=== PATIENT | male | born 1960 | race Hispanic/Latino ===

== ENCOUNTER 2018-01-03 12:20 | Emergency (ER) | payer MEDICARE ==
[2018-01-03 12:21] VITALS: BMI 33.9
[2018-01-03] MEDS ORDERED: Sodium Chloride 0.9% 500 ML IV STA (12:52)
--- NOTE | 2018-01-03 13:00 | ED PDOC ---
Arrival/HPI - General Chief Complaint: Abdominal Pain Time Seen by Provider: 01/03/18 12:35 Historian: Patient - History of Present Illness Narrative History of Present Illness (Text): 01/03/18 12:50 A 57 year old male, whose past medical history includes hypertension, diabetes, and depression, presents to the emergency department complaining of intermittent diffuse abdominal pain for a few months. Patient is unable to characterize pain and has not seen his PMD. Patient denies any fever, nausea, vomiting, or any other complaints. Limited HPI due to patient being a poor historian. Time/Duration: Other (few months) Symptom Onset: Sudden Symptom Course: Intermittent Past Medical History - Provider Review Nursing Documentation Reviewed: Yes - Past History Past History: No Previous - Infectious Disease Hx of Infectious Diseases: None - Tetanus Immunization Tetanus Immunization: Unknown, Up to Date - Cardiac Hx Cardiac Disorders: Yes Hx Hypertension: Yes - Pulmonary Hx Respiratory Disorders: Yes Hx Bronchitis: Yes Hx Chronic Obstructive Pulmonary Disease (COPD): Yes - Neurological Hx Neurological Disorder: Yes Hx Transient Ischemic Attacks (TIA): Yes - HEENT Hx HEENT Disorder: Yes Other/Comment: wear glasses - Renal Hx Renal Disorder: No - Endocrine/Metabolic Hx Endocrine Disorders: Yes Hx Diabetes Mellitus Type 1: Yes - Hematological/Oncological Hx Blood Disorders: No - Integumentary Hx Dermatological Disorder: No - Musculoskeletal/Rheumatological Hx Musculoskeletal Disorders: Yes Hx Back Pain: Yes - Gastrointestinal Hx Gastrointestinal Disorders: Yes Hx Gastroesophageal Reflux: Yes - Genitourinary/Gynecological Hx Genitourinary Disorders: No - Psychiatric Hx Psychophysiologic Disorder: Yes Hx Bipolar Disorder: Yes Hx Substance Use: No - Past Surgical History Past Surgical History: No Previous - Surgical History Hx Cataract Extraction: Yes Hx Orthopedic Surgery: Yes (Left knee) - Anesthesia Hx Anesthesia: Yes Hx Anesthesia Reactions: No Hx Malignant Hyperthermia: No - Suicidal Assessment Feels Threatened In Home Enviroment: No Family/Social History - Physician Review Nursing Documentation Reviewed: Yes Family/Social History: No Known Family HX Smoking Status: Never Smoked Hx Alcohol Use: No (QUIT OVER 11 YRS ) Hx Substance Use: No Hx Substance Use Treatment: Yes Allergies/Home Meds Allergies/Adverse Reactions: Allergies No Known Allergies Allergy (Verified 01/03/18 12:35) Home Medications: Home Meds Medication Instructions Recorded Confirmed Esomeprazole Magnesium [Nexium] 40 mg PO QAM 03/16/12 01/03/18 Lurasidone HCl [Latuda] 60 mg PO QAM 03/04/14 01/03/18 Acetaminophen/Oxycodone Hydr 10 mg PO Q8H 04/02/15 01/03/18 [Percocet 10/325 mg Tab] Escitalopram [Lexapro] 20 mg PO QAM 04/02/15 01/03/18 Insulin Human NPH [Humulin N] 15 units SC ACHS 04/02/15 01/03/18 Lisinopril [Zestril] 10 mg PO QAM 04/02/15 01/03/18 clonazePAM [Klonopin] 2 mg PO BID 04/02/15 01/03/18 Divalproex [Depakote DR(*BID*)] 500 mg PO BID 07/04/15 01/03/18 Ezetimibe [Zetia] 10 mg PO DAILY 01/03/18 01/03/18 Lantus 1 unit SC BID 01/03/18 01/03/18 Lasix 40 mg PO DAILY 01/03/18 01/03/18 Linaclotide [Linzess] 1 tab PO DAILY 01/03/18 01/03/18 QUEtiapine [Seroquel XR] 200 mg PO HS 01/03/18 01/03/18 Review of Systems - Physician Review All systems were reviewed & negative as marked: Yes - Review of Systems Constitutional: absent: Fevers Gastrointestinal: Abdominal Pain (intermittent pain). absent: Nausea, Vomiting Physical Exam Vital Signs Reviewed: Yes Vital Signs Temp Pulse Resp BP Pulse Ox 01/03/18 15:20 98.2 F 72 18 145/72 97 01/03/18 12:30 98.1 F 83 16 143/81 96 Temperature: Afebrile Blood Pressure: Normal Pulse: Regular Respiratory Rate: Normal Appearance: Positive for: Well-Appearing, Non-Toxic, Comfortable Pain Distress: None Mental Status: Positive for: Alert and Oriented X 3 - Systems Exam Head: Present: Atraumatic, Normocephalic Neck: Present: Normal Range of Motion Respiratory/Chest: Present: Clear to Auscultation, Good Air Exchange. No: Respiratory Distress, Accessory Muscle Use Cardiovascular: Present: Regular Rate and Rhythm, Normal S1, S2. No: Murmurs Abdomen: Present: Tenderness (mild non-focal tenderness). No: Rebound, Guarding Back: Present: Normal Inspection Upper Extremity: Present: Normal Inspection. No: Cyanosis, Edema Lower Extremity: Present: Normal Inspection. No: Edema Neurological: Present: GCS=15, CN II-XII Intact, Speech Normal Skin: Present: Warm, Dry, Normal Color. No: Rashes Psychiatric: Present: Alert, Oriented x 3, Normal Insight, Normal Concentration Medical Decision Making ED Course and Treatment: 01/03/18 12:53 Impression: 57 year old male with abdominal pain. Physical exam shows mild, non -focal abdominal tenderness with no guarding/rebound. Plan: -- Abd/Pelvis CT -- Labs -- Urinalysis -- Toradol -- IV Fluids -- Reassess and disposition Progress Notes: 01/03/18 12:55 Bedside Ultrasound shows no evidence of cholecystitis. 01/03/2018 15:00 Abd/Pelvis CT IMPRESSION: No acute intra-abdominal findings. Dictator: Charles Licea MD 01/03/18 22:59 chronic abd abd, consider ibs, gastritis, gas/constipation. labs imaging neg. updated pmd dr valle agrees with outpt management - Lab Interpretations Lab Results: 01/03/18 13:20 01/03/18 13:20 Lab Results 01/03/18 13:20: Valproic Acid 66 01/03/18 13:20: Sodium 132, Potassium 4.7, Chloride 93 L, Carbon Dioxide 27, Anion Gap 17, BUN 13, Creatinine 0.6 L, Est GFR ( Amer) > 60, Est GFR ( Non-Af Amer) > 60, Random Glucose 250 H, Calcium 8.9, Magnesium 1.6 L, Total Bilirubin 0.4, AST 41, ALT 61 H, Alkaline Phosphatase 103, Total Protein 6.8, Albumin 4.1, Globulin 2.7, Albumin/Globulin Ratio 1.5, Lipase 64 01/03/18 13:20: Urine Color Yellow, Urine Appearance Clear, Urine pH 6.0, Ur Specific [place] 1.020, Urine Protein Negative, Urine Glucose (UA) 250 H, Urine Ketones Trace H, Urine Blood Negative, Urine Nitrate Negative, Urine Bilirubin Negative, Urine Urobilinogen 0.2, Ur Leukocyte Esterase Negative 01/03/18 13:20: PT 11.2, INR 0.98, APTT 27.4 01/03/18 13:20: WBC 8.0, RBC 4.41, Hgb 13.1 L, Hct 37.0 L, MCV 83.9, MCH 29.7, MCHC 35.4, RDW 13.1, Plt Count 227, MPV 8.9, Gran % 52.8, Lymph % (Auto) 34.5, Wilkin % (Auto) 9.7 H, Eos % (Auto) 2.5, Baso % (Auto) 0.5, Gran # 4.20, Lymph # ( Auto) 2.8, Wilkin # (Auto) 0.8 H, Eos # (Auto) 0.2, Baso # (Auto) 0.04 - RAD Interpretation Radiology Orders: 01/03/18 13:41 ABD & PELVIS IV CONTRAST ONLY [CT] Stat - Medication Orders Current Medication Orders: Discontinued Medications Sodium Chloride (Sodium Chloride 0.9%) 500 mls @ 1,000 mls/hr IV .Q30M STA Stop: 01/03/18 13:21 Last Admin: 01/03/18 13:18 Dose: 1,000 mls/hr eMAR Start Stop Document 01/03/18 13:18 HI (Rec: 01/03/18 13:18 HI [id number]) Intravenous Solution Start Date 01/03/18 Start Time 13:18 Ketorolac Tromethamine (Toradol) 30 mg IVP STAT STA Stop: 01/03/18 12:53 Last Admin: 01/03/18 13:18 Dose: 30 mg MAR Pain Assessment Document 01/03/18 13:18 HI (Rec: 01/03/18 13:18 HI [id number]) Pain Reassessment Is this a pain reassessment? No Sleep Is patient sleeping during reassessment? No Presence of Pain Presence of Pain Yes Location Pain Location Body Site Abdomen IVP Administration Document 01/03/18 13:18 HI (Rec: 01/03/18 13:18 HI [id number]) Charges for Administration # of IVP Administrations 1 - Scribe Statement The provider has reviewed the documentation as recorded by the Rehanibvee Barron Provider Scribe Attestation: All medical record entries made by the Scribe were at my direction and personally dictated by me. I have reviewed the chart and agree that the record accurately reflects my personal performance of the history, physical exam, medical decision making, and the department course for this patient. I have also personally directed, reviewed, and agree with the discharge instructions and disposition. Disposition/Present on Arrival - Present on Arrival Any Indicators Present on Arrival: No History of DVT/PE: No History of Uncontrolled Diabetes: No Urinary Catheter: No History of Decub. Ulcer: No History Surgical Site Infection Following: None - Disposition Have Diagnosis and Disposition been Completed?: Yes Diagnosis: Abdominal pain Disposition: HOME/ ROUTINE Disposition Time: 03:00 Condition: STABLE Discharge Instructions (ExitCare): Acute Abdomen (Belly Pain) Additional Instructions: return to emergency room with worsening symptoms or concerns. please follow up with your doctor. Prescriptions: Famotidine [Pepcid] 20 mg PO DAILY #20 tab Referrals: Roberto Carlos Martinez MD [Medical Doctor] - Follow up with primary Forms: INBEP (Amharic)
[2018-01-03 13:27] LABS: BASO # 0.04 K/mm3 (0.0-2.0); BASO % 0.5 % (0.0-3.0); EOS # 0.2 (0.0-0.7); EOS % 2.5 % (1.5-5.0); GRAN # 4.2 (1.4-6.5); GRAN % 52.8 % (50.0-68.0); HEMOGLOBIN 13.1 g/dL (14.0-18.0); LYMPH # 2.8 (1.2-3.4); LYMPH % 34.5 % (22.0-35.0); MEAN CELL VOLUME 83.9 fl (80.0-105.0); MEAN CORPUSCULAR HEMOGLOBIN 29.7 pg (25.0-35.0); MEAN CORPUSCULAR HGB CONC 35.4 g/dl (31.0-37.0); MEAN PLATELET VOLUME 8.9 fl (7.0-11.0); MONO # 0.8 (0.1-0.6); MONO % 9.7 % (1.0-6.0); RBC 4.41 10^6/uL (3.5-6.1); RED CELL DISTRIBUTION WIDTH 13.1 % (11.5-14.5); URINE BILIRUBIN NEGATIVE (NEGATIVE); URINE BLOOD NEGATIVE (NEGATIVE); URINE GLUCOSE (UA) 250 mg/dL (NEGATIVE); URINE LEUKOCYTE ESTERASE NEGATIVE Leu/uL (NEGATIVE); URINE PROTEIN NEGATIVE mg/dL (<30 mg/dL); URINE UROBILINOGEN 0.2 E.U./dL (<1 E.U./dL)
[2018-01-03 13:30] LABS: URINE APPEARANCE CLEAR (CLEAR); URINE COLOR YELLOW (YELLOW)
[2018-01-03 13:36] LABS: ALB/GLOB RATIO 1.5 (1.1-1.8); ALBUMIN 4.1 g/dL (3.0-4.8); ALT/SGPT 61 U/L (7-56); AST/SGOT 41 U/L (17-59); BLOOD UREA NITROGEN 13 mg/dL (7-21); CALCIUM 8.9 mg/dL (8.4-10.5); GFR AFRICAN-AMERICAN > 60; GFR NON-AFRICAN AMERICAN > 60; LIPASE 64 U/L (23-300)
[2018-01-03 13:39] LABS: INR 0.98 (0.93-1.08); PARTIAL THROMBOPLASTIN TIME 27.4 Seconds (25.1-36.5); PROTHROMBIN TIME 11.2 SECONDS (9.4-12.5)
--- NOTE | 2018-01-03 15:02 | CT ---
PROCEDURE: CT Abdomen and Pelvis with contrast HISTORY: generalized abd pain COMPARISON: None. TECHNIQUE: Contrast dose: 150 cc of Omni 350 Radiation dose: Total exam DLP = 1669 mGy-cm. This CT exam was performed using one or more of the following dose reduction techniques: Automated exposure control, adjustment of the mA and/or kV according to patient size, and/or use of iterative reconstruction technique. FINDINGS: LOWER THORAX: Unremarkable. LIVER: There is severe fatty infiltration of the liver GALLBLADDER AND BILE DUCTS: Unremarkable. PANCREAS: Unremarkable. No gross lesion or ductal dilatation. SPLEEN: Unremarkable. ADRENALS: Unremarkable. No mass. KIDNEYS AND URETERS: Unremarkable. No hydronephrosis. No solid mass. VASCULATURE: Unremarkable. No aortic aneurysm. BOWEL: Unremarkable. No obstruction. No gross mural thickening. APPENDIX: Normal appendix. PERITONEUM: Unremarkable. No free fluid. No free air. LYMPH NODES: Unremarkable. No enlarged lymph nodes. BLADDER: Unremarkable. REPRODUCTIVE: Unremarkable. BONES: No acute fracture. OTHER FINDINGS: None. IMPRESSION: No acute intra-abdominal findings
[2018-01-03 15:41] VITALS: BP 145/72; PULSE 72; RESP 18; TEMP 98.2; O2SAT 97
== END 2018-01-03 15:20 | disposition home or self-care (01) ==
LOC: ED 12:20
DX: R10.9 Unspecified abdominal pain (principal); E11.9 Type 2 diabetes mellitus without complications; Z86.73 Personal history of transient ischemic attack (TIA), and cerebral infarction without residual deficits
CPT/HCPCS: 74177; 80053; 80164; 81003; 83690; 83735; 85025; 85610; 85730; 96374; 99284; J1885; J7040; Q9967

== ENCOUNTER 2018-03-14 07:44 | Day surgery (SDC) | payer MEDICARE ==
[2018-03-14] MEDS ORDERED: Midazolam 2 MG/2 ML VIAL ONE (12:10)
[2018-03-14] MEDS ORDERED: Propofol 10 mg/ml Inj (20 ML) ONE ×2 (12:10→12:39)
[2018-03-14] MEDS ORDERED: Sodium Chloride 0.9% 1,000 ML IV SCH (13:00)
[2018-03-14 14:24] VITALS: BP 146/84; PULSE 66; RESP 16; TEMP 98.2; O2SAT 95
== END 2018-03-14 14:16 | disposition home or self-care (01) ==
LOC: ENDO 07:44
PROVIDERS: ATTEND Internal Medicine Gastroenterology
DX: K21.9 Gastro-esophageal reflux disease without esophagitis (principal); K29.50 Unspecified chronic gastritis without bleeding; K59.00 Constipation, unspecified; K64.8 Other hemorrhoids; E11.43 Type 2 diabetes mellitus with diabetic autonomic (poly)neuropathy; K31.84 Gastroparesis; J44.9 Chronic obstructive pulmonary disease, unspecified; I10 Essential (primary) hypertension; K22.0 Achalasia of cardia; R10.9 Unspecified abdominal pain
CPT/HCPCS: 43239; 45378; 82948; 88305; 88312; 88342; J2001; J2250; J2704; J3010; J7030; J7040

== ENCOUNTER 2018-05-22 08:43 | Day surgery (SDC) | payer MEDICARE ==
[2018-05-17 11:07] VITALS: BMI 36.6
[2018-05-22] MEDS ORDERED: Propofol 10 mg/ml Inj (20 ML) ONE (12:12)
[2018-05-22] MEDS ORDERED: Etomidate 20 mg/10ml Inj IV ONE (12:12)
[2018-05-22] MEDS ORDERED: Sodium Chloride 0.9% 1,000 ML IV SCH (13:00)
[2018-05-22 13:36] VITALS: PULSE 70
[2018-05-22 14:04] VITALS: BP 155/87; RESP 14; TEMP 98; O2SAT 96
== END 2018-05-22 14:45 | disposition home or self-care (01) ==
LOC: ENDO 08:43
PROVIDERS: ATTEND Internal Medicine Gastroenterology
DX: D12.0 Benign neoplasm of cecum (principal); D12.2 Benign neoplasm of ascending colon; K64.8 Other hemorrhoids; Q43.8 Other specified congenital malformations of intestine; J44.9 Chronic obstructive pulmonary disease, unspecified; K59.00 Constipation, unspecified; K21.9 Gastro-esophageal reflux disease without esophagitis; I10 Essential (primary) hypertension; E10.9 Type 1 diabetes mellitus without complications; K22.70 Barrett's esophagus without dysplasia; M54.5 Low back pain
CPT/HCPCS: 45385; 82948; 88305; J1885 ×2; J2001; J2704; J3010; J7030

== ENCOUNTER 2018-06-28 13:56 | Observation (INO) | payer MEDICARE, OTHER ==
--- NOTE | 2018-06-28 15:03 | ED PDOC ---
Arrival/HPI - General Chief Complaint: Eye Problem Time Seen by Provider: 06/28/18 14:15 - History of Present Illness Narrative History of Present Illness (Text): 06/28/18 14:54 A 58 year old male, whose past medical history includes , presents to the [facility] department complaining of blurred vision starting yesterday. He reports that the vision in both eyes is blurry. Patient reports he recently had eye glasses prescription changed. He picked up his new glasses today but it has not improved his vision, Patient denies any chest pain, shortness of breath, back pain, neck pain, headache, any trauma, or any other complaints at this time. PMD: Dr. Miesha Bear 06/28/18 18:04 Past Medical History - Provider Review Nursing Documentation Reviewed: Yes - Past History Past History: No Previous - Infectious Disease Hx of Infectious Diseases: None - Tetanus Immunization Tetanus Immunization: Unknown, Up to Date - Cardiac Hx Pacemaker: No - Pulmonary Hx Respiratory Disorders: Yes Hx Bronchitis: Yes Hx Chronic Obstructive Pulmonary Disease (COPD): Yes - Neurological Hx Paralysis: No - HEENT Hx HEENT Disorder: Yes Other/Comment: wear glasses - Renal Hx Renal Disorder: No - Endocrine/Metabolic Hx Endocrine Disorders: Yes Hx Diabetes Mellitus Type 1: Yes - Hematological/Oncological Hx Blood Transfusions: No Hx Blood Transfusion Reaction: No - Integumentary Hx Dermatological Disorder: No - Musculoskeletal/Rheumatological Hx Musculoskeletal Disorders: Yes - Gastrointestinal Hx Gastrointestinal Disorders: Yes Hx Gastroesophageal Reflux: Yes - Genitourinary/Gynecological Hx Genitourinary Disorders: No - Psychiatric Hx Emotional Abuse: No Hx Physical Abuse: No Hx Substance Use: No - Past Surgical History Past Surgical History: No Previous - Surgical History Hx Cataract Extraction: Yes Hx Orthopedic Surgery: Yes (Left knee) - Anesthesia Hx Anesthesia Reactions: No Hx Malignant Hyperthermia: No - Suicidal Assessment Feels Threatened In Home Enviroment: No Family/Social History - Physician Review Nursing Documentation Reviewed: Yes Family/Social History: No Known Family HX Smoking Status: Never Smoked Hx Alcohol Use: No (QUIT OVER 11 YRS ) Hx Substance Use: No Hx Substance Use Treatment: Yes Allergies/Home Meds Allergies/Adverse Reactions: Allergies No Known Allergies Allergy (Verified 06/28/18 14:17) Home Medications: Home Meds Medication Instructions Recorded Confirmed Esomeprazole Magnesium [Nexium] 40 mg PO QAM 03/16/12 06/28/18 Lurasidone HCl [Latuda] 80 mg PO QAM 03/04/14 06/28/18 RX: Escitalopram [Lexapro] 20 mg PO QAM 04/02/15 06/28/18 RX: Insulin Human NPH [Humulin N] 25 units SC ACHS 04/02/15 06/28/18 RX: Lisinopril [Zestril] 10 mg PO QAM 04/02/15 06/28/18 RX: clonazePAM [Klonopin] 2 mg PO AMHS 04/02/15 06/28/18 Divalproex [Depakote DR(*BID*)] 1,000 mg PO HS 07/04/15 06/28/18 Linaclotide [Linzess] 290 mcg PO DAILY 01/03/18 06/28/18 RX: QUEtiapine [Seroquel XR] 300 mg PO HS 01/03/18 06/28/18 Clonazepam [Klonopin] 1 mg PO DAILY 02/27/18 06/28/18 Furosemide [Lasix] 60 mg PO DAILY 05/17/18 06/28/18 Insulin Glargine, Recombina 60 unit SC BID 05/17/18 06/28/18 [Lantus] Aspirin [Ecotrin] 325 mg PO DAILY 05/22/18 06/28/18 Atorvastatin [Lipitor] 20 mg PO DAILY 05/22/18 06/28/18 Lurasidone HCl [Latuda] 80 mg PO DAILY 06/28/18 06/28/18 RX: Carvedilol [Coreg] 3.125 mg PO HS 06/28/18 06/28/18 Review of Systems - Physician Review All systems were reviewed & negative as marked: Yes - Review of Systems Constitutional: absent: Other (no trauma) Eyes: Vision Changes (blurry vision to both eyes) ENT: absent: Hearing Changes Respiratory: absent: SOB Cardiovascular: absent: Chest Pain Gastrointestinal: absent: Abdominal Pain, Constipation, Diarrhea, Nausea, Vomiting Genitourinary Male: absent: Dysuria Neurological: absent: Headache Endocrine: absent: Diaphoresis Psychiatric: absent: Anxiety, Depression Physical Exam Vital Signs Reviewed: Yes Vital Signs Temp Pulse Resp BP Pulse Ox 06/28/18 14:15 98.3 F 88 18 165/84 H 96 Temperature: Afebrile Blood Pressure: Hypertensive Pulse: Regular Respiratory Rate: Normal Appearance: Positive for: Well-Appearing, Non-Toxic, Comfortable Pain Distress: None Mental Status: Positive for: Alert and Oriented X 3 - Systems Exam Head: Present: Atraumatic, Normocephalic Pupils: Present: PERRL Extroacular Muscles: Present: EOMI, Other (eyesight: both:20/50, left 20/50; right 20/40) Conjunctiva: Present: Normal Mouth: Present: Moist Mucous Membranes Neck: Present: Normal Range of Motion Respiratory/Chest: Present: Clear to Auscultation, Good Air Exchange. No: Respiratory Distress, Accessory Muscle Use Cardiovascular: Present: Regular Rate and Rhythm, Normal S1, S2. No: Murmurs Abdomen: No: Tenderness, Distention, Peritoneal Signs Back: Present: Normal Inspection Upper Extremity: Present: Normal Inspection. No: Cyanosis, Edema Lower Extremity: Present: Normal Inspection. No: Edema Neurological: Present: GCS=15, CN II-XII Intact, Speech Normal, Gait Normal Skin: Present: Warm, Dry, Normal Color. No: Rashes Psychiatric: Present: Alert, Oriented x 3, Normal Insight, Normal Concentration Medical Decision Making ED Course and Treatment: 06/28/18 14:58 Impression: 58 year old male with blurry vision to both eyes. NIHSS:0. Plan: -- EKG -- Head CT -- Labs -- Reassess and disposition Progress Notes: 06/28/18 15:[address] Miesha Bear who is at bedside and requests tele observation and who requests neurology consult with Dr. Walter Webster 06/28/18 15:42 CT head negative 06/28/18 15:45 EKG shows NSA at 79bpm with 1st degree av block with pvcs, incomplete lbbb, nonspecific st changes. appears new? Patient has no chest pain. Trop x 1 negative. - RAD Interpretation Radiology Orders: 06/28/18 14:34 HEAD W/O CONTRAST [CT] Stat - Scribe Statement The provider has reviewed the documentation as recorded by the Rehanibe Kamini Barron Provider Scribe Attestation: All medical record entries made by the Scribe were at my direction and personally dictated by me. I have reviewed the chart and agree that the record accurately reflects my personal performance of the history, physical exam, medi brenda decision making, and the department course for this patient. I have also personally directed, reviewed, and agree with the discharge instructions and disposition. Disposition/Present on Arrival - Present on Arrival Any Indicators Present on Arrival: No History of DVT/PE: No History of Uncontrolled Diabetes: No Urinary Catheter: No History of Decub. Ulcer: No History Surgical Site Infection Following: None - Disposition Have Diagnosis and Disposition been Completed?: Yes Diagnosis: Vision changes Disposition: HOSPITALIZED Disposition Time: 15:42 Patient Plan: Observation Patient Problems: Current Active Problems Problem Status Onset Vision changes Acute Condition: FAIR
--- NOTE | 2018-06-28 15:38 | CT ---
Date of service: 06/28/2018 PROCEDURE: CT HEAD WITHOUT CONTRAST. HISTORY: blurry vision b/l COMPARISON: None available. TECHNIQUE: Axial computed tomography images were obtained through the head/brain without intravenous contrast. Radiation dose: Total exam DLP = 878.91 mGy-cm. This CT exam was performed using one or more of the following dose reduction techniques: Automated exposure control, adjustment of the mA and/or kV according to patient size, and/or use of iterative reconstruction technique. FINDINGS: HEMORRHAGE: No intracranial hemorrhage. BRAIN: No mass effect or edema. No atrophy or chronic microvascular ischemic changes. VENTRICLES: Unremarkable. No hydrocephalus. CALVARIUM: Unremarkable. PARANASAL SINUSES: Unremarkable as visualized. No significant inflammatory changes. MASTOID AIR CELLS: Unremarkable as visualized. No inflammatory changes. OTHER FINDINGS: None. IMPRESSION: Normal CT of the Head.
[2018-06-28 16:34] LABS: ALB/GLOB RATIO 1.3 (1.1-1.8); ALBUMIN 3.9 g/dL (3.0-4.8); ALT/SGPT 69 U/L (7-56); AST/SGOT 65 U/L (17-59); BLOOD UREA NITROGEN 9 mg/dL (7-21); GFR NON-AFRICAN AMERICAN > 60
[2018-06-28] MEDS ORDERED: Sodium Chloride 0.9% 1,000 ML IV STA (16:35)
[2018-06-28 16:46] LABS: TROPONIN I 0.01 ng/mL
[2018-06-28 17:14] LABS: BASO # 0.02 K/mm3 (0.0-2.0); BASO % 0.3 % (0.0-3.0); EOS # 0.2 (0.0-0.7); EOS % 1.9 % (1.5-5.0); GRAN # 3.94 (1.4-6.5); GRAN % 50.7 % (50.0-68.0); HEMOGLOBIN 13.1 g/dL (14.0-18.0); LYMPH # 2.8 (1.2-3.4); LYMPH % 36.2 % (22.0-35.0); MEAN CELL VOLUME 85.1 fl (80.0-105.0); MEAN CORPUSCULAR HGB CONC 35.3 g/dl (31.0-37.0); MONO # 0.9 (0.1-0.6); MONO % 10.9 % (1.0-6.0); RBC 4.36 10^6/uL (3.5-6.1); RED CELL DISTRIBUTION WIDTH 13.3 % (11.5-14.5); WHITE BLOOD COUNT 7.8 10^3/uL (4.5-11.0)
[2018-06-28 18:45] VITALS: O2SAT 96
--- NOTE | 2018-06-28 18:48 | CON ---
DATE: 06/28/2018 NEUROLOGY CONSULT CHIEF COMPLAINT: Blurry vision. CURRENT HISTORY OF PRESENT ILLNESS: A 58-year-old man with history of type 2 diabetes mellitus, COPD, schizophrenia, wears glasses, history of GERD, history of left knee orthopedic surgery, history of depression, and anxiety, on Seroquel, Klonopin, Latuda, Lexapro, Depakote, aspirin, and Lipitor for stroke prevention who presents with complaints of blurry vision on both eyes and he recently saw an orthotics assistant for glass and told that his vision was okay and that his did not change. He says he cannot see clearly with and without glasses. He was having blurry vision rather than double. No headaches. No focal changes. No focal sensitivity . No focal weakness of the extremities. He has some mild peripheral neuropathy on the neuro examination on the lower extremities. Otherwise, no falls. PAST MEDICAL HISTORY: As above. SOCIAL HISTORY: No illicit drug use, smoking or EtOH abuse. ALLERGIES: NO KNOWN DRUG ALLERGIES. MEDICATIONS: Reviewed by nurses' reconciliation sheet. REVIEW OF SYSTEMS: A 14-point review of systems is negative except as per HPI. FAMILY HISTORY: Noncontributory. LABORATORY DATA: Sodium is 127, potassium 4.3, chloride 93, carbon dioxide 28, BUN of 9, creatinine 0.7, and random glucose of 120. PHYSICAL EXAMINATION: GENERAL: The patient is sitting up in bed, in no acute distress. VITAL SIGNS: Temperature 98.3, pulse rate 79, blood pressure 150/76, respiratory rate 18, and oxygen saturation 97% by room air. HEENT: Atraumatic and normocephalic. PERRLA. Extraocular muscles are intact. NECK: Supple. No JVD. No adenopathy noted. LUNGS: Clear to auscultation. No adventitious sounds. HEART: S1 and S2. Normal rate and rhythm. No murmurs, rubs, or gallops. ABDOMEN: Soft, nontender, and nondistended. Bowel sounds are present. EXTREMITIES: No clubbing. No cyanosis. Peripheral pulses 2+ felt bilaterally. NEUROLOGIC: The patient is alert and oriented to person, place, month, and year. Speech is fluent without any errors. Cranial nerves II through XII intact. There is some mild blurry vision on visual acuity at both eyes. When covering each eye, the blurry vision does not improve. No double vision seen. MOTOR EXAMINATION: Moves all extremities equally. No pronator drift seen. SENSORY EXAMINATION: Decreased light touch and pinprick up to the calves bilaterally. Decreased vibration of the toes. DTRs are 2+ throughout and 1 at both knees and ankles. COORDINATION: [id number] intact. No dysmetria noted. Gait is deferred for now. IMPRESSION: Blurry vision could be secondary to diabetic neuropathy versus central versus underlying hyponatremia with a low sodium of 127. RECOMMENDATIONS: At this time, I recommend: 1. Corrected underlying metabolic in terms of of hyponatremia. 2. MRI of the brain to assess for any central abnormalities causing blurry vision. 3. Keep blood sugars between 140-180, get hemoglobin A1c and diabetic diet. Thank you for this consult. Walter Webster MD
--- NOTE | 2018-06-28 20:09 | HP ---
DATE OF EXAM: 06/28/2018 HISTORY OF PRESENT ILLNESS: This 58-year-old male who presents to the emergency room with complaints of blurred vision. The patient states that he has been having blurred vision for the last 2 days and also states that he recently changed his eye glasses where the prescriptions remain the same according to the patient. The patient denies any headaches. He denies any nausea or vomiting. ALLERGIES: NO KNOWN ALLERGIES. MEDICATIONS: His current home medication list consists of Latuda 80 mg daily, Lantus insulin 60 units subcutaneously b.i.d., Lipitor 20 mg daily, Ecotrin 325 daily, Klonopin 2 mg a.m. and at bedtime, Seroquel XR 300 mg at bedtime, Zestril 10 mg daily, Linzess 290 mcg daily, Humulin N 25 units subcutaneously a.c. and at bedtime, Lasix 60 mg daily, Nexium 40 mg daily, Lexapro 20 mg daily, Depakote ER 1000 mg p.o. at bedtime, Klonopin 1 mg p.o. daily and Coreg 3.125 mg at bedtime. PAST MEDICAL HISTORY: He has a history of gastroesophageal reflux disease, gastroparesis, fatty liver disease, bipolar disorder, depression, hypertension, COPD, insulin-dependent diabetes, degenerative arthritis of the spine, hyperlipidemia. SOCIAL HISTORY: He is a nonsmoker, nondrinker, non drug user. REVIEW OF SYSTEMS: A 10 systems are reviewed. Pertinent findings is that physical exam. PHYSICAL EXAMINATION: GENERAL: The patient is currently lying on a stretcher in the emergency room. VITAL SIGNS: His temperature is 98.3. His pulse is 88. His blood pressure reported 165/84, respiratory rate is 18, his oxygen sat is 96% on room air. NECK: Supple. No JVD. CHEST: Symmetric. HEART: S1, S2 rhythm. LUNGS: Show diminished breath sounds at the bases. ABDOMEN: Obese, soft with positive bowel sounds. EXTREMITIES: Show evidence of edema. LABORATORY DATA: Shows a WBC of 7.8, RBC 4.36, hemoglobin 13.1, hematocrit 37.1, platelet count is 205. Chemistry shows a sodium of 127, potassium 4.3, chloride 93, CO2 of 28. BUN is 90, creatinine is 0.7. Random blood sugar is 120. His AST is 65. His ALT is 69. Alkaline phosphatase is 112. Troponin is 0.01, albumin is 3.9. A CAT scan of his head reported by radiologist is showing normal CT of the head. IMPRESSION: 1. The patient changes. 2. Hyponatremia. 3. Insulin dependent diabetes. 4. Fatty liver disease. 5. Gastroesophageal reflux disease. 6. Gastroparesis. 7. Hypertension. 8. Chronic obstructive pulmonary disease. 9. Bipolar disorder. PLAN: The patient will be admitted to monitored bed with a Neurology consult. We will also get a Nephrology consult and we will get a followup with psychiatry to review his current medications. Further treatment plan is pending further diagnostic studies. Miesha Bear MD
--- NOTE | 2018-06-28 20:23 | CARD ---
APPROVED REPORT Date of service: 06/28/2018 EKG Measurement Heart [id number] <Conclusion> Sinus rhythm with 1st degree AV block with occasional premature ventricular complexes Incomplete left bundle branch block Nonspecific ST and T wave abnormality Prolonged QT Abnormal ECG
[2018-06-28] MEDS ORDERED: QUEtiapine 300 mg XR Tab PO SCH (22:00)
[2018-06-28] MEDS ORDERED: Divalproex 500 mg ER (ONCE DAILY formulation) PO SCH (22:00)
[2018-06-28] MEDS: Oxycodone/Acetaminophen 5/325 mg Tab PO SCH (23:01)
[2018-06-28 23:08] VITALS: BMI 38.3
[2018-06-28] MEDS ORDERED: Pneumococcal 23-Valent Vaccine IM ONE (23:08)
[2018-06-28] MEDS ORDERED: Influenza Vaccine 60 mcg/0.5 mL SYR (4YR UP) IM ONE (23:08)
[2018-06-29] MEDS: Oxycodone/Acetaminophen 5/325 mg Tab PO SCH ×3 (06:58→15:03)
[2018-06-29] MEDS ORDERED: INSULIN GLARGINE SC SCH ×2 (07:00→07:42)
[2018-06-29 07:04] LABS: ALB/GLOB RATIO 1.2 (1.1-1.8); ALBUMIN 3.5 g/dL (3.0-4.8); ALT/SGPT 55 U/L (7-56); AST/SGOT 47 U/L (17-59); BLOOD UREA NITROGEN 9 mg/dL (7-21); CALCIUM 8.9 mg/dL (8.4-10.5); GFR NON-AFRICAN AMERICAN > 60
[2018-06-29] MEDS ORDERED: LINZESS 290 MCG PO SCH (07:30)
[2018-06-29] MEDS ORDERED: Insulin Human NPH 1 UNITS/0.01 ML SC SCH (07:30)
[2018-06-29] MEDS ORDERED: Pantoprazole 40 mg EC Tab PO SCH (07:30)
[2018-06-29] MEDS ORDERED: Aspirin 325 mg EC Tablets PO SCH (10:00)
[2018-06-29] MEDS ORDERED: LATUDA (LURASIDONE) 80MG TABLET PO SCH (10:00)
[2018-06-29 10:40] VITALS: BP 151/76
--- NOTE | 2018-06-29 12:42 | CP.PCM.PCO ---
Physician Communication Note - Physician Communication Note Physician Communication Note: awaiting CTA head/neck results radiology called, renal consult pending
--- NOTE | 2018-06-29 12:47 | CT ---
Date of service: 06/28/2018 PROCEDURE: CTA HEAD AND NECK WITH CONTRAST HISTORY: blurred vision. COMPARISON: None available. TECHNIQUE: Initial noncontrast head CT was performed. Subsequently, CT angiogram of the head and neck were performed after the intravenous administration of 80 mL of Omnipaque 350. Contiguous 1.5mm thick images were obtained in the axial plane of the neck. 2-D coronal and sagittal MPR images were obtained. Imaging postprocessing was performed with 3-D images also obtained. A delayed contrast head CT was also obtained. This CT exam was performed using one or more of the following dose reduction techniques: Automated exposure control, adjustment of the mA and/or kV according to patient size, and/or use of iterative reconstruction technique. Contrast dose: 143 mL Omnipaque 350 Radiation dose: Total exam DLP = 648.47 mGy-cm. FINDINGS: HEAD: Right: The intracranial internal carotid artery, and anterior and middle cerebral arteries are widely patent. Left: The intracranial internal carotid artery, and anterior and middle cerebral arteries are widely patent. Posterior circulation: The visualized intracranial vertebral arteries, basilar artery and posterior cerebral arteries are widely patent. There is no endoluminal filling defect to suggest thrombus. There is no intracranial saccular aneurysm. NECK: There is a three vessel aortic arch. There is no stenosis at the origins of the great vessels at the level of the aortic arch. There are coarse atherosclerotic calcifications in the common carotid arteries, carotid bulbs and proximal internal carotid arteries with approximately 25-50% stenosis on the right and on the left. Right Carotid: On the right, the common carotid, internal carotid and external carotid arteries are widely patent. There is no hemodynamically significant stenosis in the internal carotid artery by NASCET criteria. Left Carotid: On the left, the common carotid, internal carotid and external carotid arteries are widely patent. There is no hemodynamically significant stenosis in the internal carotid artery by NASCET criteria. The vertebral arteries are widely patent. The left vertebral artery is hypoplastic, an anatomic variant. The visualized soft tissues of the neck are normal. The visualized brain and cervical spine are within normal limits. The lung apices are clear. IMPRESSION: 1. No evidence of endoluminal thrombus,occlusion or definite significant stenosis in the intracranial arteries. 2. No evidence of hemodynamically significant stenosis in the internal carotid arteries. 3. Patent bilateral vertebral arteries. A preliminary report was provided by [facility]..
[2018-06-29 12:59] VITALS: RESP 21; TEMP 98.1
--- NOTE | 2018-06-29 14:31 | CP.PCM.PCO ---
Physician Communication Note - Physician Communication Note Physician Communication Note: patient still declining MRI of brain will have done outpatient open MRI.
[2018-06-29] MEDS ORDERED: Pneumococcal 23-Valent Vaccine IM ONE (15:35)
[2018-06-29] MEDS ORDERED: Influenza Vaccine 60 mcg/0.5 mL SYR (4YR UP) IM ONE (15:35)
[2018-06-29 17:26] VITALS: PULSE 76
--- NOTE | 2018-06-30 00:03 | CON ---
DATE: 06/29/2018 REASON FOR CONSULTATION: Hyponatremia, blurry vision. HISTORY OF PRESENT ILLNESS: A 58-year-old male previously unknown to me. The patient presented to the emergency room yesterday with complaints of blurry vision of one day duration. He reports that he woke up the previous day and had a shower and felt his vision was blurry. He put some Visine eyedrops in the eyes. But as the day went on, his blurry vision got worse. So he came to the emergency room the following day. In the emergency room, the patient was worked up for a possible TIA. His head CT was negative. He had a CTA, which also did not show anything. Currently, he reports that his vision is improving. He was found to have a sodium of 127 in the emergency room. He received 1 liter of normal saline. The patient denies any history of nausea, vomiting, or diarrhea. He denies any history of any excessive water intake. He is on multiple psychotropic agents. He has history of bipolar disorder. He is also on Lasix 60 mg daily at home. PAST MEDICAL AND SURGICAL HISTORY: NIDDM x15 years, hypertension x15 years, bipolar disorder, history of COPD, DJD, hyperlipidemia, GERD. FAMILY HISTORY: Noncontributory. SOCIAL HISTORY: No smoking, no alcohol use, no IV drug abuse. ALLERGIES: NO KNOWN DRUG ALLERGIES. MEDICATIONS AT HOME: Include Klonopin, Lipitor, lisinopril 10 mg daily, Lasix 60 mg daily, Coreg 3.125 b.i.d., Latuda 80 mg, Seroquel 300 mg, Nexium, Lexapro, Depakote. REVIEW OF SYSTEMS: All systems are reviewed, pertinent positives as mentioned in the history of presenting illness, rest unremarkable. PHYSICAL EXAMINATION: GENERAL: Obese middle-aged male lying in bed. VITAL SIGNS: Blood pressure 151/76, heart rate 77, respiratory rate 21, temperature 98.1. HEENT: Normocephalic, atraumatic, positive pallor. NECK: Supple, no JVD. LUNGS: Bilateral equal air entry, bilateral equal expansion. CARDIAC: S1, S2, regular rate and rhythm, no murmur, no rub. ABDOMEN: Obese, distended, soft, nontender, bowel sounds present. EXTREMITIES: Trace lower extremity edema. INTAKE AND OUTPUT: 1140/4 ? LABORATORY DATA: WBC 7.8, hemoglobin 13, hematocrit 37, platelets 205. Sodium 133, potassium 4.7, chloride 97, CO2 of 30, BUN 9, creatinine 0.7, glucose 137, calcium 8.9, AST 47, ALT 55, albumin 3.5. ASSESSMENT: 1. Hyponatremia ? likely to be syndrome of inappropriate antidiuretic hormone secretion (SIADH) in the setting of psych meds. 2. Transient blurry vision ? transient ischemic attack. 3. Dqi-rlrgjby-zyccsuyez diabetes mellitus. 4. Hypertension. 5. Bipolar disorder. 6. Edema. PLAN: 1. Check urinalysis. 2. Check urine sodium, check urine osmolality and serum uric acid. 3. Continue Lasix, since it allows for increased free water excretion. 4. Okay to discharge from the renal standpoint. 5. Advised outpatient followup. Renae Rodrigues MD
== END 2018-06-29 17:24 | disposition home or self-care (01) ==
LOC: ED 13:56 → ERH 15:43 → 2RNO 17:59
PROVIDERS: ADMIT Internal Medicine; ATTEND Internal Medicine
DX: E10.43 Type 1 diabetes mellitus with diabetic autonomic (poly)neuropathy (principal); E22.2 Syndrome of inappropriate secretion of antidiuretic hormone; E78.5 Hyperlipidemia, unspecified; F31.9 Bipolar disorder, unspecified; G62.9 Polyneuropathy, unspecified; I10 Essential (primary) hypertension; J44.9 Chronic obstructive pulmonary disease, unspecified; K21.9 Gastro-esophageal reflux disease without esophagitis; K31.84 Gastroparesis; K76.0 Fatty (change of) liver, not elsewhere classified; R29.700 NIHSS score 0; Z79.4 Long term (current) use of insulin; Z79.899 Other long term (current) drug therapy; R60.9 Edema, unspecified; M47.9 Spondylosis, unspecified
CPT/HCPCS: 36415; 70450; 70496; 70498; 80053; 82948; 84484; 84550; 85025; 85651; 90732; 93005; 96360; 99285; G0009; G0378; J7030; Q9967

== ENCOUNTER 2018-07-21 09:49 | Outpatient (CLI) | payer MEDICARE, OTHER | END 2018-07-21 09:50 | disposition home or self-care (01) | LOC: LAB 09:49 ==

== ENCOUNTER 2018-09-11 10:12 | Outpatient (CLI) | payer MEDICARE | END 2018-09-11 10:13 | disposition home or self-care (01) | LOC: LAB 10:12 ==